=== PATIENT | male | born 1965 | race Native Hawaiian/Other Pacific Islander ===

== ENCOUNTER 2016-12-25 11:59 | Emergency (ER) | payer OTHER ==
[~2016-12-25] VITALS: Ht 157.5 cm; Wt 95.3 kg
[~2016-12-25 11:59] MED LIST: AMOX875T8 PO; METO5TAB16 PO; OMEP40CA PO; OMEPRAZOLE40 MG PO; RANI150T78 PO; RANITIDINE 150150 MG PO; WAL-ITIN1 TAB OR
[2016-12-25 12:03] VITALS: TEMP 97.8
[2016-12-25] MEDS ORDERED: PROTONIX20 MG PO (12:13)
[2016-12-25 12:56] LABS: PLATELET COUNT 293 K/uL (142-355)
[2016-12-25 13:09] LABS: POTASSIUM 4.1 mmol/L (3.6-5.2); SODIUM 139 mmol/L (136-145)
[2016-12-25 14:29] VITALS: BP 151/85
== END 2016-12-25 14:30 | disposition home or self-care (01) ==
LOC: ED 11:59
PROVIDERS: Family Medicine
DX: I87.8 Other specified disorders of veins (principal); I83.028 Varicose veins of left lower extremity with ulcer other part of lower leg; G47.30 Sleep apnea, unspecified; I10 Essential (primary) hypertension; L03.116 Cellulitis of left lower limb; L02.416 Cutaneous abscess of left lower limb; R21 Rash and other nonspecific skin eruption
CPT/HCPCS: 36415; 80048; 82550; 85027; 85379; 87070; 87077; 87185; 87186; 87205; 93005; 99283

== ENCOUNTER 2021-04-25 17:53 | Emergency (ER) | payer OTHER ==
[~2021-04-25] VITALS: Ht 162.6 cm; Wt 72.6 kg
[~2021-04-25 17:53] MED LIST changes: +PROTONIX20 MG PO
[2021-04-25 18:55] VITALS: BP 128/66; TEMP 97.9
== END 2021-04-25 19:00 | disposition home or self-care (01) ==
LOC: ED 17:53
DX: J32.8 Other chronic sinusitis (principal); L60.0 Ingrowing nail
CPT/HCPCS: 96372; 99283; J0696; J1885

== ENCOUNTER 2021-05-30 09:47 | Outpatient (CLI) | payer OTHER | END 2021-05-30 20:02 | disposition home or self-care (01) | LOC: US 09:47 | PROVIDERS: ATTEND Nurse Practitioner Family | DX: E03.9 Hypothyroidism, unspecified (principal) ==

== ENCOUNTER 2022-01-20 06:08 | Outpatient (CLI) | payer OTHER ==
[2022-01-20 07:50] LABS: POTASSIUM 3.5 mmol/L (3.6-5.2)
[2022-01-20 08:10] LABS: PLATELET COUNT 261 K/uL (142-355)
== END 2022-01-20 19:28 | disposition home or self-care (01) ==
LOC: LABW 06:08
PROVIDERS: ATTEND Nurse Practitioner Family
DX: R53.83 Other fatigue (principal); R73.03 Prediabetes; E03.8 Other specified hypothyroidism; E53.9 Vitamin B deficiency, unspecified; E55.9 Vitamin D deficiency, unspecified
CPT/HCPCS: 36415; 80053; 80061; 82306; 82607; 83036; 84439; 84443; 84481; 85027; 86376

== ENCOUNTER 2022-07-29 08:54 | Emergency (ER) | payer OTHER ==
[~2022-07-29] VITALS: Ht 162.6 cm; Wt 54.4 kg
[2022-07-29 08:57] VITALS: BP 162/86; TEMP 98.8
== END 2022-07-29 10:01 | disposition home or self-care (01) ==
LOC: ED 08:54
DX: K59.09 Other constipation (principal)
CPT/HCPCS: 99283